=== PATIENT | male | born 1960 | race Caucasian/White ===

== ENCOUNTER → 2018-08-26 | Outpatient (CLI) | payer OTHER | LOC: CARD 13:33 | PROVIDERS: ATTEND Nurse Practitioner Family | DX: R07.9 Chest pain, unspecified (principal); R06.09 Other forms of dyspnea; R53.83 Other fatigue; I25.708 Atherosclerosis of coronary artery bypass graft(s), unspecified, with other forms of angina pectoris; E78.5 Hyperlipidemia, unspecified | CPT/HCPCS: 93306 ==

== ENCOUNTER → 2018-08-28 | Outpatient (CLI) | payer OTHER ==
--- NOTE | 2018-08-28 11:09 | Diagnostic Imaging Report ---
INDICATION: Chronic neck pain. Time of exam: 10:43 AM No prior studies are available for comparison. Curvature and alignment of the cervical spine is normal. There is significant multilevel degenerative disc disease. Disc space narrowing and marginal osteophyte formation is noted at all levels of the cervical spine. The prevertebral tissues are within normal limits. The odontoid appears to be intact. IMPRESSION: Cervical spondylosis. No acute bony abnormality is detected. Dictated by: Dictated on workstation # [id number]
== END ==
LOC: RAD FS 10:33
PROVIDERS: ATTEND Family Medicine
DX: M47.22 Other spondylosis with radiculopathy, cervical region (principal)
CPT/HCPCS: 72040

== ENCOUNTER 2018-09-09 06:59 | Day surgery (SDC) | payer OTHER ==
[~2018-09-09] VITALS: Ht 177.8 cm; Wt 113.4 kg
[2018-09-09] VITALS (10 sets, daily range): BP systolic 122–162; BP diastolic 69–93
[2018-09-09] MEDS ORDERED: LIDOCAINE 1% INJ 20 ML 20 ML VIAL ONE (07:03)
[2018-09-09] MEDS ORDERED: NS IV 1000 ML 1,000 ML ONE (07:03)
[2018-09-09] MEDS ORDERED: HEParin (CATH LAB) 2,000 ML IV ONE (07:04)
[2018-09-09] MEDS ORDERED: NS IV 1000 ML 1,000 ML IV SCH ×2 (07:15→10:29)
[2018-09-09 07:30] LABS: HEMOGLOBIN 15.4 G/DL (13.3-17.7); MEAN PLATELET VOLUME 9.7 FL (7.4-10.4); RED CELL DISTRIBUTION WIDTH 13.4 % (10.0-14.5); WHITE BLOOD COUNT 6.1 10^3/uL (4.3-11.0)
[2018-09-09] MEDS ORDERED: TRAM50TA2 PO (07:31)
[2018-09-09] MEDS ORDERED: NAPR-915 PO (07:33)
[2018-09-09] MEDS ORDERED: ASPI-983 PO (07:33)
[2018-09-09] MEDS ORDERED: ATOR80TA76 PO (07:33)
[2018-09-09] MEDS ORDERED: GABA800T10 PO (07:33)
[2018-09-09] MEDS ORDERED: MULT1TAB69 PO (07:44)
[2018-09-09] MEDS ORDERED: CALC-140 PO (07:44)
[2018-09-09] MEDS ORDERED: TAMS0.4C98 PO (07:44)
[2018-09-09] MEDS ORDERED: POTA99TA21 PO (07:44)
[2018-09-09] MEDS ORDERED: ASCO500C17 PO (07:44)
[2018-09-09] MEDS ORDERED: EZET10TA5 PO (07:44)
[2018-09-09] MEDS ORDERED: MAGN400T39 PO (07:44)
[2018-09-09] MEDS ORDERED: LOSA100T3 PO (07:44)
[2018-09-09] MEDS ORDERED: DOCU-238 PO (07:44)
[2018-09-09] MEDS ORDERED: MELA10TA2 PO (07:44)
[2018-09-09] MEDS ORDERED: OMEG-85 PO (07:44)
[2018-09-09] MEDS ORDERED: CITA10TA12 PO (07:44)
[2018-09-09] MEDS ORDERED: ATEN50TA PO (07:44)
[2018-09-09 07:45] LABS: PROTHROMBIN TIME PATIENT 13.5 SEC (12.2-14.7)
[2018-09-09] MEDS ORDERED: VITA1TAB17 PO (07:45)
[2018-09-09] MEDS ORDERED: VITAMIN D PO (07:45)
[2018-09-09] MEDS ORDERED: CYCL10TA9 PO (07:45)
[2018-09-09] MEDS ORDERED: FERR-84 PO (07:45)
[2018-09-09] MEDS ORDERED: TEST1.252 TD (07:45)
[2018-09-09] MEDS ORDERED: TEMA15CA6 PO (07:45)
[2018-09-09 07:52] LABS: ALANINE AMINOTRANSFERASE 57 U/L (0-55); ALBUMIN 4.6 GM/DL (3.2-4.5); ALKALINE PHOSPHATASE 56 U/L (40-136); BILIRUBIN,TOTAL 0.6 MG/DL (0.1-1.0); BUN/CREATININE RATIO 22; CARBON DIOXIDE 24 MMOL/L (21-32); CHLORIDE 104 MMOL/L (98-107); CHOLESTEROL 136 MG/DL (< 200); GFR ESTIMATED > 60; GLUCOSE 94 MG/DL (70-105); HDL CHOLESTEROL 38 MG/DL (40-60); POTASSIUM 4.5 MMOL/L (3.6-5.0); SODIUM 141 MMOL/L (135-145); TOTAL PROTEIN 7.4 GM/DL (6.4-8.2); TRIGLYCERIDES 141 MG/DL (<150); VLDL CHOLESTEROL 28 MG/DL (5-40)
[2018-09-09] MEDS ORDERED: fentaNYL INJECTION 100 MCG/2 ML AMP ONE (09:06)
[2018-09-09] MEDS ORDERED: MIDAZOLAM 5 MG/5 ML (VERSED) VIAL ONE (09:06)
--- NOTE | 2018-09-09 09:32 | Cardiac Procedure Note-CS/ASA ---
Pre-Procedure Note Pre-Op Procedure Note H&P Reviewed The H&P was reviewed, patient examined and no changes noted. Date H&P Reviewed: Sep 09, 2018 Time H&P Reviewed: 09:32 Conscious Sedation Pre-Proced Time 09:32 ASA Score 3 For ASA 3 and 4: Consider anesthesia and medical clearance. Also, for patients with a history of failed moderate sedation consider anesthesia. Airway Lungs Heart ASA score ASA 1: a normal healthy patient ASA 2: a patient with a mild systemic disease (mid diabetes, controlled hypertension, obesity ASA 3: a patient with a severe systemic disease that limits activity (angina , COPD, prior Myocardial infarction) ASA 4: a patient with an incapacitating disease that is a constant threat to life (CHF, renal failure) ASA 5: a moribund patient not expected to survive 24 hrs. (ruptured aneurysm) ASA 6: a declared brain- patient whose organs are being harvested. For emergent operations, add the letter E after the classification Mallampati Classification Grade 2 Sedation Plan Analgesia, Amnesia, Plan communicated to team members, Discussed options with patient/fam, Discussed risks with patient/fam The patient is an appropriate candidate to undergo the planned procedure, sedation, and anesthesia. The patient immediately re-assessed prior to indication. NAOMIE OGLESBY MD FACP FAC CCDS Sep 09, 2018 09:32
[2018-09-09] MEDS ORDERED: PATIENT MAY USE OWN MEDS, ALL PO SCH (10:30)
--- NOTE | 2018-09-09 10:34 | Discharge Inst-Post CATH ---
Discharge Inst-CATH/EP Post Cardiac Cath/EP D/C Inst Follow Up/Plan F/u with Dr Ferguson next week <b>CARDIAC CATH/EP PROCEDURE DISCHARGE INSTRUCTIONS</b> ACTIVITY * Go Home directly and rest. * Limit activity of the leg (or wrist if it was used) for 7 days including aerobics, swimming, jogging, bicycling, etc. * Restrict stair-climbing for 7 days if possible, if not, climb up with your non -cath leg, then bring together on the same step. * Avoid lifting, pushing, pulling or excessive movement of the affected extremity for 7 days. * Customary sexual activity may be resumed after 2 days-use caution not to use a position that strains or causes pain to the affected extremity. * No driving for 24 hours. * NO SMOKING. * Avoid straining for bowel movements for 7 days. * Gentle walking on level ground is allowed. * Returning to work will depend on the type of procedure and the results. Your doctor will discuss this with you. CALL YOUR DOCTOR FOR ANY OF THE FOLLOWING: *If bleeding from the puncture site occurs- Apply gentle pressure to site with clean cloth and call your doctor or EMS. * If a knot or lump forms under the skin, increases in size, or causes pain. * If bruising appears to be worsening or moving further down your leg instead of disappearing. * Temperature above 101 F. CARE OF YOUR GROIN INCISION; * Bruising or purple discoloration of the skin near the puncture site is common. * You may shower only, no bathtub bathing for 5 days. Be careful to avoid slipping as your leg may feel stiff. * If a closure device was used on your femoral artery, please see the attached guide regarding care of the device and your leg. * Leave dressing on FOR 24 hours. CARE OF YOUR WRIST INCISION; * Bruising or purple discoloration of the skin near the puncture site is common. * You may shower. * DO NOT submerge wrist. * Leave dressing on FOR 24 hours. NAOMIE FERGUSON MD FACP FAC CCDS Sep 09, 2018 10:34
--- NOTE | 2018-09-09 10:34 | Discharge Inst-Cardiology ---
Discharge Inst-Cardiac Discharge Medications Continued Medications: Ascorbic Acid (Vitamin C) 500 Mg Capsule 500 MG PO DAILY, CAP Aspirin (Aspirin EC) 81 Mg Tablet.dr 81 MG PO DAILY, TAB Atenolol (Atenolol) 50 Mg Tablet 50 MG PO DAILY, TAB Atorvastatin Calcium (Atorvastatin Calcium) 80 Mg Tablet 80 MG PO DAILY, TAB Calcium Carbonate/Vitamin D3 (Calcium + Vitamin D Tablet) 1 Each Tablet 1 EACH PO DAILY, TAB Citalopram Hydrobromide (Celexa) 10 Mg Tablet 10 MG PO DAILY, TAB Cyclobenzaprine HCl (Cyclobenzaprine HCl) 10 Mg Tablet 10 MG PO TID PRN for PAIN-MILD, TAB Docusate Sodium (Stool Softener) 100 Mg Capsule 100 MG PO DAILY, CAP Ezetimibe (Zetia) 10 Mg Tablet 10 MG PO DAILY, TAB Ferrous Sulfate (Iron) 325 Mg Tablet 325 MG PO DAILY, TAB Gabapentin (Gabapentin) 800 Mg Tablet 800 MG PO BID, TAB Losartan Potassium (Cozaar) 100 Mg Tablet 100 MG PO DAILY, TAB Magnesium Oxide (Magnesium) 400 Mg Tablet 400 MG PO DAILY, TAB Melatonin (Melatonin) 10 Mg Tablet 10 MG PO DAILY, TAB Multivitamin (Multivitamins) 1 Each Tablet 1 EACH PO DAILY, TAB Naproxen (Naproxen) 500 Mg Tablet 500 MG PO Q12H Blossom-3S/Dha/Epa/Fish Oil/D3 (Fish Sgw-Voygn-4-Vit D Softgel) 1 Each Capsule 1 EACH PO DAILY, CAP Potassium Gluconate (Potassium) 99 Mg Tablet 99 MG PO DAILY, TAB Tamsulosin HCl (Flomax) 0.4 Mg Cap 0.4 MG PO DAILY, CAP Temazepam (Restoril) 15 Mg Capsule 15 MG PO DAILY, CAP Testosterone (Androgel) 1.25 Gm Gel.packet 1.25 GM TD DAILY for 7 Days, TUBE Tramadol HCl (Tramadol HCl) 50 Mg Tablet 100 MG PO Q6H PRN for PAIN-MILD, TAB Vitamin B Complex (Vitamin B Complex) 1 Each Tablet 1 EACH PO DAILY, TAB [Vitamin D 125 Mcg] () 125 MCG PO DAILY Patient Instructions Patient Instructions: F/u with Dr Ferguson next week Orders-Post D/C & Referrals Pneu Vac Indicated: Yes NAOMIE FERGUSON MD FACP FAC CCDS Sep 09, 2018 10:34
--- NOTE | 2018-09-09 12:42 | CARDIAC CATHETERIZATION ---
DATE OF SERVICE: 09/09/2018 CARDIAC CATHETERIZATION REPORT INDICATIONS: The patient is a 58-year-old man who has a history of coronary artery disease and has had coronary artery bypass surgery consisting of left internal mammary artery graft to left anterior descending and a saphenous vein graft to an obtuse marginal around 2005. He has had symptoms of palpitations and shortness of breath and some chest discomfort. Cardiac catheterization was carried out today after having obtained an informed consent. PROCEDURE IN DETAIL: She was brought to the cardiac catheterization laboratory in a fasting state. Right groin was prepared and draped in the usual sterile fashion. Lidocaine 1% was used for local anesthesia. Modified Seldinger technique was used to advance a 5-English sheath in the right femoral artery. A 5-English LEONILA catheter was used for angiography of the left internal mammary artery graft to left anterior descending artery. A 5-English JR4 catheter was used for right coronary angiography and for angiography of the saphenous vein graft. A 5-English JL4 catheter was used for left coronary angiography. A 5-English pigtail catheter was used for left heart catheterization and left ventricular angiography. Angiography of the right femoral artery was carried out through the sheath. At the end of the procedure, Mynx was used to achieve hemostasis. He tolerated the procedure well. HEMODYNAMICS: Left ventricular end-diastolic pressure following coronary angiography was 15 mmHg. There was no significant pressure gradient on pullback across the aortic valve. Ascending aortic pressure was 128/77 with a mean of 67 mmHg. LEFT VENTRICULAR ANGIOGRAPHY: Left ventricular angiography was carried out in the right anterior oblique projection. Global left ventricular systolic function is normal. No regional wall motion abnormality is seen. Left ventricular ejection fraction is 60% to 65%. CORONARY ANGIOGRAPHY: Left main coronary artery has an anomalously arising proximal vessel, proximal to the left anterior descending artery. This appears to have a fistulous connection with another anomalously arising vessel from the right coronary ostium. Subsequently, prior to the left main coronary artery bifurcation, there appears to be another small vessel, which is proximally occluded. Left anterior descending artery has severe proximal and mid vessel disease. It is protected by a patent left internal mammary artery graft to the distal left anterior descending artery: The left circumflex artery has mild plaques. Right coronary artery is dominant and has mild plaques. As stated, from the ostium of the right coronary artery also arises another vessel, which appears to have a fistulous connection, probably with the left coronary system. LEFT INTERNAL MAMMARY ARTERY GRAFT ANGIOGRAPHY: Left internal mammary artery graft to the distal left anterior descending artery is widely patent and does not exhibit significant disease. There is good distal runoff. SAPHENOUS VEIN GRAFT ANGIOGRAPHY: Saphenous vein graft is occluded in its ostium. This is reported to have been a bypass graft to an obtuse marginal of the left circumflex. CONCLUSIONS: 1. Coronary artery disease primarily consisting of severe proximal and mid vessel disease of the left anterior descending artery that is protected by a patent left internal mammary artery graft to distal left anterior descending. Left circumflex artery does not exhibit significant obstructive disease. Right coronary artery has up to 50% mid-vessel stenoses. 2. 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 3. Mild elevation of left ventricular end-diastolic pressure. 4. Normal global left ventricular systolic function with an ejection fraction 60% to 65%. 5. Occluded saphenous vein graft that reportedly went to an obtuse margin of the left circumflex. DISCUSSION AND RECOMMENDATION: Based on results of the study, it appears appropriate to continue a conservative approach. Risk factor modification has been advised. Outpatient followup is advised. Job ID: [id number] DocumentID: [id number] Dictated Date: 09/09/2018 10:20:04 Building Architect Date: 09/09/2018 12:42:26 Dictated By: NAOMIE OGLESBY MD, MA, FACP, FACC, MTDD
== END 2018-09-09 14:15 | disposition home or self-care (01) ==
LOC: CATH 06:59 → SDC 10:30 → CATH 14:15
PROVIDERS: ATTEND Internal Medicine Cardiovascular Disease
DX: I25.708 Atherosclerosis of coronary artery bypass graft(s), unspecified, with other forms of angina pectoris (principal); T82.858A Stenosis of other vascular prosthetic devices, implants and grafts, initial encounter; R06.09 Other forms of dyspnea; R53.83 Other fatigue; I10 Essential (primary) hypertension; E78.5 Hyperlipidemia, unspecified; G47.33 Obstructive sleep apnea (adult) (pediatric); Z82.49 Family history of ischemic heart disease and other diseases of the circulatory system; Z95.1 Presence of aortocoronary bypass graft; Z87.891 Personal history of nicotine dependence; Z99.89 Dependence on other enabling machines and devices; Z79.82 Long term (current) use of aspirin; Z79.899 Other long term (current) drug therapy
CPT/HCPCS: 36415; 80053; 80061; 85027; 85610; 85730; 87081; 93459

== ENCOUNTER → 2018-09-12 | Outpatient (CLI) | payer BC, OTHER ==
[~2018-09-12] MED LIST: ASCO500C17 PO; ASPI-983 PO; ATEN50TA PO; ATOR80TA76 PO; CALC-140 PO; CITA10TA12 PO; CYCL10TA9 PO; DOCU-238 PO; EZET10TA5 PO; FERR-84 PO; GABA800T10 PO; HOLD METFORMIN - RECEIVED CONTRAST 20 ML VIAL IV SCH; LOSA100T3 PO; MAGN400T39 PO; MELA10TA2 PO; MULT1TAB69 PO; NAPR-915 PO; OMEG-85 PO; POTA99TA21 PO; TAMS0.4C98 PO; TEMA15CA6 PO; TEST1.252 TD; TRAM50TA2 PO; VITA1TAB17 PO; VITAMIN D PO
[2018-09-12] MEDS: IOHEXOL 350 MG/ML 100 ML (OMNIPAQUE 350) VIAL IV ONE (15:32)
--- NOTE | 2018-09-12 20:13 | Diagnostic Imaging Report ---
PROCEDURE: CT chest with and without contrast. TECHNIQUE: Multiple contiguous axial images were obtained through the chest before and after administration of intravenous contrast. Auto Exposure Controls were utilized during the CT exam to meet ALARA standards for radiation dose reduction. DATE: September 12, 2018. COMPARISON: None. INDICATION: 58-year-old male, shortness of breath. FINDINGS: There is a calcified right lower lobe pulmonary nodule on axial image 30 which measures 18 mm in size. There is a subcentimeter calcified right lower lobe pulmonary nodule on axial image 22 as well as on axial image 20. There is a calcified right lower lobe pulmonary nodule subcentimeter in size also on axial image 19. There is a 3 mm noncalcified left upper lobe pulmonary nodule on axial image 15. There is no identified lung mass. There is no focal airspace consolidation. There is no pneumothorax. There is no pleural effusion. The central airways are patent. There is no identified central or segmental pulmonary embolus. The main pulmonary artery is normal in caliber. The heart is not enlarged. There is no pericardial effusion. There are calcified right hilar lymph nodes. There is no identified abnormally enlarged noncalcified mediastinal, hilar or axillary lymph node. There is a low-attenuation lesion in the right lobe of the liver on axial image 32 which measures 1.8 cm in size with internal attenuation diagnostic for a benign hepatic cyst. There are small splenic calcifications likely relating to sequela of prior granulomatous disease. Additional evaluation of the imaged portions of the upper abdomen is unremarkable. There are multilevel degenerative changes of the spine. There are median sternotomy wires. There is no identified acute bony abnormality. IMPRESSION: CT chest: 1. No identified acute cardiopulmonary abnormality. 2. Sequela of prior granulomatous disease. 3. There is a 3 mm noncalcified left upper lobe pulmonary nodule. Recommend followup CT chest in six months to evaluate for stability, if comparison imaging is not available to document long-term stability. Dictated by: Dictated on workstation # [id number]
== END ==
LOC: RAD 15:01
PROVIDERS: ATTEND Nurse Practitioner Family
DX: I25.41 Coronary artery aneurysm (principal); J84.10 Pulmonary fibrosis, unspecified; R91.1 Solitary pulmonary nodule; Z98.890 Other specified postprocedural states
CPT/HCPCS: 71270

== ENCOUNTER → 2019-09-02 | Outpatient (CLI) | payer OTHER ==
[~2019-09-02] MED LIST changes: +CATHETER FLUSH 10 ML SYR IV PRN; +EZET10TA17 PO; -EZET10TA5 PO; +IOHEXOL 350 MG/ML 100 ML (OMNIPAQUE 350) VIAL IV ONE; +NS 100 ML (IVPB) BAG IV ONE; -TAMS0.4C98 PO; +TMSL.4C PO; -TRAM50TA2 PO; +TRM50T PO
[2019-09-02 09:57] LABS: BUN/CREATININE RATIO 24; CREATININE SERUM 0.86 MG/DL (0.60-1.30); GFR ESTIMATED > 60
--- NOTE | 2019-09-02 11:19 | Diagnostic Imaging Report ---
EXAMINATION: CT Chest with intravenous contrast. TECHNIQUE: Multiple contiguous axial images were obtained through the chest after the uneventful administration of intravenous contrast. All CT scans use one or more of the following dose optimizing techniques: automated exposure control, MA and/or KvP adjustment based on a patient size and exam type, or iterative reconstruction. HISTORY: Lung nodule COMPARISON: 10/09/2018 FINDINGS: There is no edema or pneumonia. No pleural effusion. No pneumothorax. There is a stable 3 mm left upper lobe nodule. Scattered calcified nodules are consistent with prior granulomatous infection. Heart size is normal. There are severe coronary artery calcifications. No pericardial effusion. Aorta is normal in caliber. There is no axillary or supraclavicular lymphadenopathy. There is no mediastinal lymphadenopathy. Median sternotomy has been performed for coronary artery bypass grafting. There is tethering of the right ventricular outflow tract to the sternum suggestive of adhesive disease. Limited views of the upper abdomen show cysts in the liver. There are no suspicious osseus lesions. IMPRESSION: 1. Left upper lobe pulmonary nodule stable, this can be considered benign without further follow-up needed. Dictated by: Dictated on workstation # [id number]
== END ==
LOC: LAB FS 09:16
PROVIDERS: ATTEND Nurse Practitioner Family
DX: R91.1 Solitary pulmonary nodule (principal); R06.89 Other abnormalities of breathing; R06.00 Dyspnea, unspecified
CPT/HCPCS: 36415; 71260; 82565; 84520

== ENCOUNTER → 2020-08-16 | Outpatient (CLI) | payer OTHER ==
[~2020-08-16] MED LIST changes: +ASPI-1238 PO; -ASPI-983 PO; -CATHETER FLUSH 10 ML SYR IV PRN; -HOLD METFORMIN - RECEIVED CONTRAST 20 ML VIAL IV SCH; -IOHEXOL 350 MG/ML 100 ML (OMNIPAQUE 350) VIAL IV ONE; +MULT-567 PO; -MULT1TAB69 PO; -NS 100 ML (IVPB) BAG IV ONE
--- NOTE | 2020-08-16 10:23 | Diagnostic Imaging Report ---
INDICATION: Acute pain of left knee. TECHNIQUE: Four views of the left knee. CORRELATION STUDY: None. FINDINGS: The joint spaces are maintained. The articular surfaces are smooth and preserved. There is no acute bony abnormality. There is a bony exostosis off the medial proximal tibia. The base measures approximately 5 to 6 mm with an overall length of approximately 19 mm. Soft tissues appearing unremarkable. Vascular clips in the posterior thigh. IMPRESSION: 1. Negative for acute bony abnormality of the knee. 2. Bony exostosis at the proximal medial tibia. While this has a relatively benign appearance, given symptoms of pain without otherwise significant findings, consideration for MRI (preferably with and without contrast) would be recommended for further assessment. Dictated by: Dictated on workstation # [id number]
== END ==
LOC: RAD FS 09:06
PROVIDERS: ATTEND Family Medicine
DX: M89.9 Disorder of bone, unspecified (principal); M25.562 Pain in left knee; Z98.890 Other specified postprocedural states
CPT/HCPCS: 73562

== ENCOUNTER → 2022-03-22 | Outpatient (CLI) | payer BC, OTHER ==
[~2022-03-22] MED LIST changes: +CYCL10TA25 PO; -CYCL10TA9 PO; -DOCU-238 PO; +DOCU-26 PO; -POTA99TA21 PO; +POTA99TA26 PO
== END ==
LOC: CARDFS 10:07
PROVIDERS: ATTEND Family Medicine
DX: I10 Essential (primary) hypertension (principal)
CPT/HCPCS: 93306

== ENCOUNTER → 2022-04-20 | Outpatient (CLI) | payer BC ==
[~2022-04-20] MED LIST changes: +CATHETER FLUSH 10 ML SYR IV PRN; +HOLD METFORMIN - RECEIVED CONTRAST 20 ML VIAL IV SCH; +IOHEXOL 350 MG/ML 100 ML (OMNIPAQUE 350) VIAL IV ONE; +NS 100 ML (IVPB) BAG IV ONE
--- NOTE | 2022-04-20 13:27 | Diagnostic Imaging Report ---
EXAMINATION: CT chest with intravenous contrast. TECHNIQUE: Multiple contiguous axial images were obtained through the chest after the uneventful administration of intravenous contrast. All CT scans use one or more of the following dose optimizing techniques: Automated exposure control, MA and/or KvP adjustment based on patient size and exam type or iterative reconstruction. HISTORY: Follow-up lung nodule. COMPARISON: 09/02/2019. FINDINGS: The heart size is within normal limits. No pericardial effusion is present. Post-CABG changes are noted. There is no mediastinal, hilar, or axillary lymphadenopathy. Nodule is seen in the inferior pole of the right lobe of the thyroid measuring 1.3 cm. Nodule is seen in the medial aspect of the left upper lobe measuring 3-4 mm. No new suspicious pulmonary nodules are seen. Calcified granulomas are seen in the right lower lobe and right hilar region. There are no focal areas of consolidation. No central endobronchial obstructing lesions are identified. There is no pleural effusion or pneumothorax. The osseous structures demonstrate no acute abnormalities. Limited views of the upper abdominal structures demonstrate no acute abnormalities. Stable benign cysts/hemangiomas are seen in the liver. Both adrenal glands are unremarkable. IMPRESSION: 1. Stable nodule in the medial aspect of the left upper lobe measuring 3-4 mm. No new suspicious pulmonary nodules. No dedicated follow-up is recommended. 2. Development of a nodule in the inferior pole of the right lobe of the thyroid measuring 1.3 cm. Consider correlation with TSH levels and thyroid ultrasound if indicated. Dictated by: Dictated on workstation # [id number]
== END ==
LOC: LAB FS 08:29
PROVIDERS: ATTEND Internal Medicine Cardiovascular Disease
DX: R91.1 Solitary pulmonary nodule (principal); E04.1 Nontoxic single thyroid nodule
CPT/HCPCS: 36415; 71260; 82565; 84520; Q9967

== ENCOUNTER → 2022-05-01 | Outpatient (CLI) | payer BC ==
[~2022-05-01] VITALS: Ht 177 cm; Wt 120.0 kg
[~2022-05-01] MED LIST changes: -CATHETER FLUSH 10 ML SYR IV PRN; +CATHETER FLUSH 10 ML SYR IVP PRN; -HOLD METFORMIN - RECEIVED CONTRAST 20 ML VIAL IV SCH; -IOHEXOL 350 MG/ML 100 ML (OMNIPAQUE 350) VIAL IV ONE; -NS 100 ML (IVPB) BAG IV ONE; +REGADENOSON 0.4 MG/5 ML SYR (LEXISCAN) IV ONE
[2022-05-01 09:17] VITALS: BP 168/94
--- NOTE | 2022-05-03 04:02 | STRESS TEST ---
DATE OF SERVICE: 05/01/2022 RESTING AND POST REGADENOSON TECHNETIUM-99M TETROFOSMIN SPECT CT IMAGING ORDERING PHYSICIAN: Dr. Ferguson. PRIMARY PHYSICIAN: ____. CLINICAL DIAGNOSIS: Coronary artery disease. FINDINGS: Baseline images were carried out after injection of 10.87 mCi of technetium-99m tetrofosmin. This was followed by 0.4 mg regadenoson and 30.9 mCi of technetium-99 Tetrofosmin for stress imaging. The electrocardiogram showed sinus rhythm at baseline. It did not change significantly with the regadenoson infusion. The patient noted a headache and some shortness of breath following regadenoson infusion, which resolved in a few minutes. Review of images at rest and following stress does not indicate any distinct perfusion defects, consistent with significant myocardial ischemia or infarction. There is some degree of diaphragmatic attenuation both at rest and following regadenoson infusion. Gated images show well preserved global left ventricular systolic function without any distinct regional wall motion abnormality. Diaphragmatic wall of the left ventricle also appears to move normally and appears to move normally. Left ventricular ejection fraction is calculated to be 58%. CONCLUSIONS: 1. No evidence of significant myocardial ischemia or infarction on the study. 2. Well preserved global left ventricular systolic function with an ejection fraction of 58%. 3. No distinct regional wall motion abnormality is demonstrated on this study. Job ID: [id number] DocumentID: [id number] Dictated Date: 05/02/2022 20:31:33 Resident Service Coordinator Date: 05/03/2022 04:00:00 Dictated By: NAOMIE FERGUSON MD; GELY; FACP; FACC;
== END ==
LOC: CARD 07:40
PROVIDERS: ATTEND Internal Medicine Cardiovascular Disease
DX: I25.10 Atherosclerotic heart disease of native coronary artery without angina pectoris (principal)
CPT/HCPCS: 78452; 93017

== ENCOUNTER → 2022-10-03 | Outpatient (CLI) | payer BC ==
[~2022-10-03] MED LIST changes: -CATHETER FLUSH 10 ML SYR IVP PRN; -LOSA100T3 PO; +LOSA100T4 PO; -REGADENOSON 0.4 MG/5 ML SYR (LEXISCAN) IV ONE
[2022-10-03 08:48] LABS: ALANINE AMINOTRANSFERASE 37 U/L (0-55); ALBUMIN 4.2 GM/DL (3.2-4.5); ALKALINE PHOSPHATASE 66 U/L (40-136); BILIRUBIN,DIRECT < 0.2 MG/DL (0.0-0.3); BILIRUBIN,INDIRECT 0.1 MG/DL; BILIRUBIN,TOTAL 0.3 MG/DL (0.1-1.0); TOTAL PROTEIN 6.8 GM/DL (6.4-8.2)
== END ==
LOC: LAB FS 08:11
PROVIDERS: ATTEND Podiatrist Foot & Ankle Surgery
DX: B35.1 Tinea unguium (principal)
CPT/HCPCS: 36415; 80076

== ENCOUNTER → 2022-10-30 | Outpatient (CLI) | payer BC ==
[2022-10-30 10:11] LABS: BILIRUBIN,DIRECT < 0.2 MG/DL (0.0-0.3); BILIRUBIN,TOTAL 0.3 MG/DL (0.1-1.0)
[2022-10-30 10:13] LABS: ALANINE AMINOTRANSFERASE 38 U/L (0-55); ALBUMIN 4.3 GM/DL (3.2-4.5); ALKALINE PHOSPHATASE 62 U/L (40-136); TOTAL PROTEIN 7.1 GM/DL (6.4-8.2)
== END ==
LOC: LAB FS 08:55
PROVIDERS: ATTEND Podiatrist Foot & Ankle Surgery
DX: B35.1 Tinea unguium (principal)
CPT/HCPCS: 36415; 80076